=== PATIENT | female | born 1975 | race Asian ===

== ENCOUNTER → 2017-05-09 | Outpatient (CLI) | payer BC ==
[2017-05-09 14:11] LABS: BASO % 0.6 % (0.0-1.0); EOS # 0.1 10^3/uL (0.0-0.50); EOS % 1.6 % (0.0-3.0); IMMATURE GRANULOCYTE % 0.2 % (0-0); LYMPH # 1.4 10^3/uL (1.5-4.5); LYMPH % 28.7 % (24.0-44.0); MEAN CORPUSCULAR HEMOGLOBIN 28.4 pg (27.0-33.0); MEAN CORPUSCULAR HGB CONC 33.3 g/dl (32.0-36.5); MEAN CORPUSCULAR VOLUME 85.2 fl (80.0-96.0); MONO # 0.3 10^3/uL (0.0-0.8); MONO % 6.6 % (0.0-5.0); NEUTROPHILS % 62.3 % (36.0-66.0); PLATELET COUNT, AUTOMATED 230 10^3/uL (150-450); RED CELL DISTRIBUTION WIDTH 13.1 % (11.5-14.5); WHITE BLOOD COUNT 4.9 10^3/uL (4.0-10.0)
[2017-05-10 11:09] LABS: HBsAg Prenatal NEGATIVE (NEGATIVE)
== END ==
LOC: M SMT 09:52
PROVIDERS: ATTEND Advanced Practice Midwife
DX: Z34.81 Encounter for supervision of other normal pregnancy, first trimester (principal)

== ENCOUNTER → 2017-06-06 | Outpatient (CLI) | payer BC | LOC: M SMT 08:54 | PROVIDERS: ATTEND Advanced Practice Midwife | DX: O09.521 Supervision of elderly multigravida, first trimester (principal); Z36.0 Encounter for antenatal screening for chromosomal anomalies ==

== ENCOUNTER → 2017-07-17 | Outpatient (CLI) | payer BC, MEDICAID ==
--- NOTE | 2017-07-17 20:56 | REP ---
Clinical: Anatomical evaluation. Comparison: None . Findings: Examination demonstrates a single live intrauterine in breech presentation. motion is identified by technologist. Placenta is noted anteriorly and grade one without evidence for placenta previa or abruption. Amniotic fluid volume is normal. Cervix measures the 4.0 cm in length and appears closed. No evidence for nuchal cord. Gestational age by LMP 19 weeks 5 days with TRA 12/06/2017 . Gestational age by current measurements 20 weeks 2 days with TRA 12/02/2017 . FHR equals 157 beats per minute. BPD 4.8 cm 20 weeks 4 days HC 18.0 cm 20 weeks 3 days AC 15.6 cm 20 weeks 5 days FL 3.3 cm 20 weeks 3 days HL 3.4 cm 21 weeks 4 days HC/AC ratio 1.16 Estimated weight 363 grams ( 79th percentile). Anatomical assessment demonstrates normal structures including cranium, choroid plexus, cavum, cerebellum/posterior fossa, lungs, diaphragm, stomach, cord insertion/three-vessel cord, kidneys/bladder, spine, and extremities. Limited evaluation of the facial profile, and heart/ventricular outflow tracts noted. Impression: Single live intrauterine in breech presentation demonstrating appropriate interval growth. Anatomical limitations as described above may warrant reevaluation and follow-up. Remainder examination is normal. Signed by Mitesh Spring MD 07/17/2017 05:48 P
== END ==
LOC: M SMT 07:58
PROVIDERS: ATTEND Advanced Practice Midwife
DX: Z34.82 Encounter for supervision of other normal pregnancy, second trimester (principal); Z3A.19 19 weeks gestation of pregnancy

== ENCOUNTER → 2017-08-06 | Outpatient (CLI) | payer BC, MEDICAID | LOC: M SMT 14:52 | DX: Z34.82 Encounter for supervision of other normal pregnancy, second trimester (principal); Z3A.32 32 weeks gestation of pregnancy | CPT/HCPCS: 76816 ==

== ENCOUNTER → 2017-09-02 | Outpatient (CLI) | payer BC, OTHER, MEDICAID ==
[2017-09-02 13:34] LABS: BASO % 0.7 % (0.0-1.0); EOS # 0.1 10^3/uL (0.0-0.50); EOS % 1.5 % (0.0-3.0); HEMATOCRIT 30.6 % (36.0-47.0); HEMOGLOBIN 10.2 g/dl (12.0-16.0); IMMATURE GRANULOCYTE % 0.4 % (0-0); LYMPH # 1.2 10^3/uL (1.5-4.5); MEAN CORPUSCULAR HEMOGLOBIN 30.9 pg (27.0-33.0); MEAN CORPUSCULAR HGB CONC 33.3 g/dl (32.0-36.5); MEAN CORPUSCULAR VOLUME 92.7 fl (80.0-96.0); MONO # 0.3 10^3/uL (0.0-0.8); MONO % 4.7 % (0.0-5.0); NEUTROPHILS # 3.8 10^3/uL (1.8-7.7); NEUTROPHILS % 70.7 % (36.0-66.0); PLATELET COUNT, AUTOMATED 174 10^3/uL (150-450); RED CELL DISTRIBUTION WIDTH 14.3 % (11.5-14.5); WHITE BLOOD COUNT 5.4 10^3/uL (4.0-10.0)
[2017-09-02 13:57] LABS: GLUCOSE CHALLENGE TEST 1 HOUR 162 MG/DL (LESS THAN 140)
== END ==
LOC: M SMT 08:32
DX: Z34.82 Encounter for supervision of other normal pregnancy, second trimester (principal)
CPT/HCPCS: 82950

== ENCOUNTER 2017-11-27 06:39 | Inpatient (IN) | payer OTHER ==
[2017-11-27] MEDS: LACTATED RINGER'S 1000 ML IV (11:05)
[2017-11-27 11:20] LABS: HEMATOCRIT 35.2 % (36.0-47.0); HEMOGLOBIN 11.9 g/dl (12.0-15.5); MEAN CORPUSCULAR HEMOGLOBIN 31.1 pg (27.0-33.0); MEAN CORPUSCULAR HGB CONC 33.8 g/dl (32.0-36.5); MEAN CORPUSCULAR VOLUME 91.9 fl (80.0-96.0); PLATELET COUNT, AUTOMATED 139 10^3/uL (150-450); RED BLOOD COUNT 3.83 10^6/uL (4.00-5.40); RED CELL DISTRIBUTION WIDTH 14.4 % (11.5-14.5); WHITE BLOOD COUNT 7.1 10^3/uL (4.0-10.0)
[2017-11-27] MEDS: LR 1,000 ML IV ×2 (12:01→16:10)
[2017-11-27] MEDS ORDERED: OXYTOCIN INJ 10 UNITS/ML VIAL (J2590) As Ordered (13:43)
[2017-11-27] MEDS ORDERED: MORPHINE PRES-FREE INJ 10 MG/10 ML VIAL (J2274) As Ordered (13:43)
[2017-11-27] MEDS: BICITRA 30ML SOLN UDC PO (13:51)
[2017-11-27] MEDS ORDERED: ONDANSETRON 4MG/2ML VIAL (J2405) IV ×3 (14:10→16:15)
[2017-11-27] MEDS ORDERED: METOCLOPRAMIDE INJ 10MG/2ML VIAL (J2765) IV (14:10)
[2017-11-27] MEDS ORDERED: NALBUPHINE HCL 10 MG/ML AMP (J2300) IV ×2 (14:10→15:45)
[2017-11-27] MEDS ORDERED: NALOXONE INJ 0.4 MG/1 ML VIAL (J2310) IV ×2 (14:10)
[2017-11-27] MEDS ORDERED: ONDANSETRON 4MG/2ML VIAL (J2405) As Ordered (14:30)
[2017-11-27] MEDS ORDERED: dexameTHASONE 4 MG/ML 1ML VIAL (J1100) As Ordered (14:52)
[2017-11-27] MEDS ORDERED: LR 1,000 ML IV (15:45)
[2017-11-27] MEDS ORDERED: fentaNYL 100 MCG/2 ML INJECTION (J3010) IV (15:45)
[2017-11-27] MEDS ORDERED: PERCOCET 5MG/325MG TAB PO (16:15)
[2017-11-27] MEDS: OXYTOCIN DRIP 30 UNITS in APPROPRIATE DILUENT 1 EA IV (16:15)
[2017-11-27] MEDS ORDERED: KETOROLAC 30 MG/ML VIAL (J1885) IV (16:15)
[2017-11-27] MEDS ORDERED: MOM 30ML SUSPENSION UDC PO (16:15)
[2017-11-27] MEDS ORDERED: DOCUSATE SODIUM 100 MG CAP PO (16:15)
[2017-11-27] MEDS ORDERED: RHOGAM 300 MCG (1500 IU) INJ (J2790) IM (16:15)
[2017-11-27] MEDS ORDERED: MEASLES,MUMPS,RUBELLA VACCINE INJ (MMR-II) (90707) SC (16:15)
[2017-11-27] MEDS: KETOROLAC 30 MG/ML VIAL (J1885) IV (21:06)
[2017-11-28] MEDS: LR 1,000 ML IV ×3 (00:31→19:53)
[2017-11-28] MEDS: KETOROLAC 30 MG/ML VIAL (J1885) IV ×3 (03:42→15:00)
[2017-11-28 06:29] LABS: HEMATOCRIT 27.5 % (36.0-47.0); MEAN CORPUSCULAR HEMOGLOBIN 31.8 pg (27.0-33.0); MEAN CORPUSCULAR HGB CONC 34.5 g/dl (32.0-36.5); PLATELET COUNT, AUTOMATED 127 10^3/uL (150-450); RED BLOOD COUNT 2.99 10^6/uL (4.00-5.40); WHITE BLOOD COUNT 9.2 10^3/uL (4.0-10.0)
[2017-11-28 06:30] LABS: HEMOGLOBIN 9.5 g/dl (12.0-15.5)
[2017-11-28] MEDS: PRENATAL VITAMINS CHEWABLE TABLET PO (09:00)
[2017-11-28] MEDS: PERCOCET 5MG/325MG TAB PO (18:30)
[2017-11-28] MEDS: IBUPROFEN 800 MG TAB PO (22:37)
[2017-11-29] MEDS: LR 1,000 ML IV (00:10)
[2017-11-29] MEDS: IBUPROFEN 800 MG TAB PO (06:25)
[2017-11-29] MEDS: INFLUENZA QUADRIVALENT PF VACCINE 0.5ML SYRINGE (90686) IM (08:24)
[2017-11-29] MEDS: PRENATAL VITAMINS CHEWABLE TABLET PO (08:24)
[2017-11-29] MEDS: ADACEL/BOOSTRIX VACCINE (DIPHTH/PERTUSS/ACELL/TETANUS)0.5ML SYR (90715) IM (08:24)
== END 2017-11-29 12:50 | disposition home or self-care (01) | DRG 540 ==
LOC: M LDO 06:39 → M LDI 09:45 → M OBS 17:23
PROVIDERS: Obstetrics & Gynecology
PROC: 10D00Z1 Extraction of Products of Conception, Low, Open Approach (ICD-10-PCS; principal; 2017-11-27 14:01)
PROC: 0UB60ZZ Excision of Left Fallopian Tube, Open Approach (ICD-10-PCS; 2017-11-27 14:01)
DX: O24.429 Gestational diabetes mellitus in childbirth, unspecified control (principal); O34.211 Maternal care for low transverse scar from previous cesarean delivery; O09.523 Supervision of elderly multigravida, third trimester; Z37.0 Single live birth; Z3A.38 38 weeks gestation of pregnancy; Z30.2 Encounter for sterilization